=== PATIENT | male | born 1965 | race African-American/Black ===

== ENCOUNTER 2016-07-08 11:43 | Emergency (ER) | payer OTHER ==
[~2016-07-08] VITALS: Ht 175.3 cm; Wt 75.0 kg
[~2016-07-08 11:43] MED LIST: ATOR10TA69 PO; DICL50TA7 PO; DIPH-907 PO; LOSA25TA12 PO; OMEP20CA10 PO; TRAZ-129 PO
[2016-07-08] MEDS ORDERED: SODIUM CHLORIDE 0.9% 1,000 ML IV ONE (11:55)
[2016-07-08 12:27] LABS: BASOPHILS % 1.4 % (0.0-2.0); EOSINOPHILS % 4.8 % (0.0-5.0); HEMOGLOBIN. 12.6 g/dL (14.0-18.0); LYMPHOCYTES % 26.4 % (20.0-50.0); MEAN CORPUSCULAR HEMOGLOBIN 30.2 pg (28.0-32.0); MEAN CORPUSCULAR HGB CONC 33.1 g/dL (31.0-37.0); MEAN CORPUSCULAR VOLUME 91.2 fL (80.0-94.0); MEAN PLATELET VOLUME 7.3 fl (7.4-10.4); MONOCYTES % 10.2 % (2.0-8.0); NEUTROPHILS % 57.2 % (40.0-76.0); PLATELET 251 x1000/uL (130-400); RED BLOOD CELL COUNT 4.17 mill/uL (4.7-6.1); RED CELL DISTRIBUTION WIDTH 15.7 % (11.6-14.6); WHITE BLOOD COUNT 5.8 x1000/uL (4.5-11.0)
[2016-07-08 12:30] LABS: ALANINE AMINOTRANSFERASE 27 IU/L (13-61); ALBUMIN 3.7 g/dL (3.4-5.0); ANION GAP 9; CALCIUM 8.5 mg/dL (8.5-10.1); CARBON DIOXIDE 29 mEq/L (21-32); CHLORIDE 107 mEq/L (98-107); INDEX HEMOLYSI 1 (1-3); INDEX ICTERIC 1 (1-4); INDEX LIPEMIC 1 (1-3); TROPONIN I < 0.02 ng/mL (0.00-0.04); UREA NITROGEN BLOOD 14 mg/dL (7-21); eGFR > 60 mL/min (>60)
[2016-07-08 13:24] LABS: GLUCOSE URINE NEGATIVE (NEGATIVE); KETONES URINE NEGATIVE (NEGATIVE); LEUKOCYTE ESTERASE URINE NEGATIVE (NEGATIVE); NITRITE URINE NEGATIVE (NEGATIVE); OCCULT BLOOD URINE NEGATIVE (NEGATIVE); PROTEIN URINE 1+ (NEGATIVE); SPECIFIC GRAVITY URINE 1.017 (1.005-1.030)
[2016-07-08 13:38] LABS: CLARITY URINE CLEAR (CLEAR); COLOR URINE YELLOW (YELLOW)
[2016-07-08 13:49] LABS: BACTERIA URINE NONE SEEN; RBC URINE NONE SEEN /hpf (0-2); SQUAMOUS EPITHELIAL CELL URINE RARE /lpf (RARE/1+); WBC URINE 0-2 /hpf (0-2)
[2016-07-08 14:38] VITALS: BP 134/71
== END 2016-07-08 14:41 | disposition home or self-care (01) ==
LOC: ER 11:53
DX: R53.1 Weakness (principal); I10 Essential (primary) hypertension; R05 Cough; R06.02 Shortness of breath; I45.6 Pre-excitation syndrome; E11.9 Type 2 diabetes mellitus without complications; Z79.899 Other long term (current) drug therapy; Z79.84 Long term (current) use of oral hypoglycemic drugs; Z88.0 Allergy status to penicillin
CPT/HCPCS: 36415; 70450; 71010; 80053; 81001; 82962; 84484; 85025; 93005; 96360; 99285; J7030; Z7610

== ENCOUNTER 2016-07-30 11:14 | Emergency (ER) | payer OTHER ==
[~2016-07-30] VITALS: Ht 177.8 cm; Wt 77.0 kg
[2016-07-30 12:17] LABS: BASOPHILS % 0.5 % (0.0-2.0); HEMATOCRIT. 40.8 % (42.0-52.0); HEMOGLOBIN. 13.5 g/dL (14.0-18.0); LYMPHOCYTES % 25.4 % (20.0-50.0); MEAN CORPUSCULAR HEMOGLOBIN 29.8 pg (28.0-32.0); MEAN CORPUSCULAR HGB CONC 33.2 g/dL (31.0-37.0); MEAN PLATELET VOLUME 7.2 fl (7.4-10.4); MONOCYTES % 8.7 % (2.0-8.0); NEUTROPHILS % 61.4 % (40.0-76.0); PLATELET 251 x1000/uL (130-400); RED BLOOD CELL COUNT 4.53 mill/uL (4.7-6.1); RED CELL DISTRIBUTION WIDTH 15.3 % (11.6-14.6); WHITE BLOOD COUNT 6.4 x1000/uL (4.5-11.0)
[2016-07-30 12:22] LABS: DIFFERENTIAL COMMENT 1
[2016-07-30 12:23] LABS: CHLORIDE 106 mEq/L (98-107); INDEX HEMOLYSI 1 (1-3); INDEX ICTERIC 1 (1-4); INDEX LIPEMIC 1 (1-3)
[2016-07-30 12:29] LABS: ACETAMINOPHEN < 2 ug/mL (10-30); ANION GAP 11; CARBON DIOXIDE 28 mEq/L (21-32); ETHANOL BLOOD < 10 mg/dL; UREA NITROGEN BLOOD 15 mg/dL (7-21); eGFR > 60 mL/min (>60)
[2016-07-30 14:05] LABS: *AMPHETAMINES SCREEN URINE NEGATIVE (NEGATIVE); *BARBITURATES SCREEN URINE NEGATIVE (NEGATIVE); *BENZODIAZEPINES SCREEN URINE PRESUMTIVE POSITIVE (NEGATIVE); *COCAINE SCREEN URINE NEGATIVE (NEGATIVE); CANNABINOID URINE SCREEN PRESUMTIVE POSITIVE (NEGATIVE); ECSTASY MDMA SCREEN URINE NEGATIVE (NEGATIVE); METHADONE URINE SCREEN NEGATIVE (NEGATIVE); OPIATES URINE SCREEN NEGATIVE (NEGATIVE); PHENCYCLIDINE URINE SCREEN NEGATIVE (NEGATIVE)
[2016-07-30] MEDS ORDERED: METF500T4 PO (17:43)
[2016-07-30] MEDS ORDERED: BANOPHEN (17:47)
[2016-07-30] MEDS ORDERED: CHOL500010 PO (17:47)
[2016-07-30] MEDS ORDERED: OMEP40CA34 PO (17:47)
[2016-07-30] MEDS ORDERED: FOLI-43 PO (17:47)
[2016-07-30] MEDS ORDERED: DICL50TA9 PO (17:47)
[2016-07-30] MEDS ORDERED: TRAZ-132 PO (17:47)
[2016-07-30] MEDS ORDERED: ATOR80TA76 PO (17:47)
[2016-07-30] MEDS ORDERED: HYDROXYCHLOROQUINE (17:47)
[2016-07-30] MEDS ORDERED: DIPHENHYDRAMINE 25MG CAPSULE PO ONE (21:30)
[2016-07-31] MEDS ORDERED: ACETAMINOPHEN 325MG TABLET PO ONE (00:45)
[2016-07-31 09:36] VITALS: BP 141/101
== END 2016-07-31 11:54 | disposition home or self-care (01) ==
LOC: ER 11:23
DX: F41.9 Anxiety disorder, unspecified (principal); F32.9 Major depressive disorder, single episode, unspecified; F19.10 Other psychoactive substance abuse, uncomplicated; M19.90 Unspecified osteoarthritis, unspecified site; E11.9 Type 2 diabetes mellitus without complications; I10 Essential (primary) hypertension; F20.9 Schizophrenia, unspecified; F17.210 Nicotine dependence, cigarettes, uncomplicated; Z88.0 Allergy status to penicillin; Z79.1 Long term (current) use of non-steroidal anti-inflammatories (NSAID); Z79.899 Other long term (current) drug therapy
CPT/HCPCS: 36415; 80048; 80305; 80307; 80329; 82962; 85025; 99284; G0482; Z7610; Q0163

== ENCOUNTER 2016-08-20 10:47 | Emergency (ER) | payer OTHER ==
[~2016-08-20] VITALS: Ht 172.7 cm; Wt 79.0 kg
[~2016-08-20 10:47] MED LIST changes: +ATOR80TA76 PO; +BANOPHEN; +CHOL500010 PO; +DICL50TA9 PO; +FOLI-43 PO; +HYDROXYCHLOROQUINE; +METF500T4 PO; +OMEP40CA34 PO; +TRAZ-132 PO
[2016-08-20] MEDS ORDERED: KETOROLAC 60MG/2ML VIAL IM ONE (11:30)
[2016-08-20 15:00] VITALS: BP 119/75
== END 2016-08-20 15:31 | disposition home or self-care (01) ==
LOC: ER 11:34
DX: M54.5 Low back pain (principal); M54.16 Radiculopathy, lumbar region; M48.06 Spinal stenosis, lumbar region; M51.47 Schmorl's nodes, lumbosacral region; S93.402A Sprain of unspecified ligament of left ankle, initial encounter; M47.897 Other spondylosis, lumbosacral region; S93.602A Unspecified sprain of left foot, initial encounter; W01.0XXA Fall on same level from slipping, tripping and stumbling without subsequent striking against object, initial encounter; Y93.89 Activity, other specified; Y92.89 Other specified places as the place of occurrence of the external cause; I10 Essential (primary) hypertension; E11.9 Type 2 diabetes mellitus without complications; F20.9 Schizophrenia, unspecified; E78.00 Pure hypercholesterolemia, unspecified; F41.9 Anxiety disorder, unspecified; Z88.0 Allergy status to penicillin
CPT/HCPCS: 29515; 72100; 72148; 73610; 73630; 96372; 99284; J1885; Z7610

== ENCOUNTER 2016-10-08 12:50 | Observation (INO) | payer OTHER ==
[~2016-10-08] VITALS: Ht 172.7 cm; Wt 74.8 kg
[~2016-10-08 12:50] MED LIST changes: +ATOR-2 PO; -ATOR80TA76 PO; -BANOPHEN; +BANOPHEN PO; -HYDROXYCHLOROQUINE; +HYDROXYCHLOROQUINE PO
[2016-10-08 14:05] LABS: BASOPHILS % 0.7 % (0.0-2.0); HEMATOCRIT. 41.1 % (42.0-52.0); HEMOGLOBIN. 13.8 g/dL (14.0-18.0); LYMPHOCYTES % 23.1 % (20.0-50.0); MEAN CORPUSCULAR HEMOGLOBIN 29.9 pg (28.0-32.0); MEAN PLATELET VOLUME 7.4 fl (7.4-10.4); MONOCYTES % 10.3 % (2.0-8.0); NEUTROPHILS % 63.9 % (40.0-76.0); PLATELET 235 x1000/uL (130-400); RED BLOOD CELL COUNT 4.62 mill/uL (4.7-6.1); RED CELL DISTRIBUTION WIDTH 14.8 % (11.6-14.6)
[2016-10-08 14:13] LABS: INR 1.1; PARTIAL THROMBOPLASTIN TIME 29.2 sec (24.0-34.0); PROTHROMBIN TIME 11.2 sec
[2016-10-08 14:18] LABS: CARBON DIOXIDE 30 mEq/L (21-32); CHLORIDE 102 mEq/L (98-107); TROPONIN I < 0.02 ng/mL (0.00-0.04)
[2016-10-08] MEDS ORDERED: TRAMADOL 50MG TABLET PO NR (15:15)
[2016-10-08] MEDS ORDERED: IBUPROFEN 600MG TABLET PO NR (15:15)
[2016-10-08 18:58] VITALS: BP 149/113
[2016-10-08 19:30] VITALS: BP 160/99
[2016-10-08 20:00] VITALS: BP 160/99
[2016-10-08] MEDS ORDERED: ACETAMINOPHEN 650MG/20.3ML UDC PO PRN (22:15)
[2016-10-08] MEDS ORDERED: DEXTROSE 50% WATER 50ML SYRINGE IV PRN (22:15)
[2016-10-08] MEDS: TRAZODONE HCL 100MG TABLET PO SCH (22:26)
[2016-10-08] MEDS: ATORVASTATIN CALCIUM 10MG TABLET PO SCH (22:26)
[2016-10-08 23:26] LABS: *AMPHETAMINES SCREEN URINE NEGATIVE (NEGATIVE); *BARBITURATES SCREEN URINE NEGATIVE (NEGATIVE); *BENZODIAZEPINES SCREEN URINE PRESUMTIVE POSITIVE (NEGATIVE); *COCAINE SCREEN URINE NEGATIVE (NEGATIVE); CANNABINOID URINE SCREEN PRESUMTIVE POSITIVE (NEGATIVE); METHADONE URINE SCREEN NEGATIVE (NEGATIVE); OPIATES URINE SCREEN NEGATIVE (NEGATIVE); PHENCYCLIDINE URINE SCREEN NEGATIVE (NEGATIVE)
[2016-10-09] VITALS: BP 118/81
[2016-10-09 04:00] VITALS: BP 125/78
[2016-10-09 06:35] LABS: BASOPHILS % 1.3 % (0.0-2.0); EOSINOPHILS % 5.8 % (0.0-5.0); HEMATOCRIT. 41.2 % (42.0-52.0); HEMOGLOBIN. 13.9 g/dL (14.0-18.0); LYMPHOCYTES % 31.4 % (20.0-50.0); MEAN CORPUSCULAR HEMOGLOBIN 29.7 pg (28.0-32.0); MEAN CORPUSCULAR VOLUME 88.4 fL (80.0-94.0); MEAN PLATELET VOLUME 7.4 fl (7.4-10.4); MONOCYTES % 11.6 % (2.0-8.0); NEUTROPHILS % 49.9 % (40.0-76.0); PLATELET 240 x1000/uL (130-400); RED BLOOD CELL COUNT 4.67 mill/uL (4.7-6.1); RED CELL DISTRIBUTION WIDTH 14.8 % (11.6-14.6)
[2016-10-09 07:04] LABS: CARBON DIOXIDE 27 mEq/L (21-32); CHLORIDE 103 mEq/L (98-107); LDL CHOLESTEROL 43 mg/dL (5-100)
[2016-10-09 07:08] LABS: HDL CHOLESTEROL 51 mg/dL (40-59); T4 FREE 1.21 ng/dL (0.76-1.46); TROPONIN I < 0.02 ng/mL (0.00-0.04)
[2016-10-09] MEDS: INSULIN LISPRO 100 UNITS/ML SUBCUT SCH ×4 (07:15→20:42)
[2016-10-09 08:00] VITALS: BP 154/96
[2016-10-09] MEDS ORDERED: LOSARTAN POTASSIUM 100 MG TABLET PO SCH (09:00)
[2016-10-09] MEDS ORDERED: IOHEXOL-350 100 ML BOTTLE ONE (10:15)
[2016-10-09] MEDS ORDERED: SODIUM CHLORIDE 0.9% 10ML VIAL ONE (10:15)
[2016-10-09] MEDS: LOSARTAN POTASSIUM 25 MG TABLET PO SCH (10:17)
[2016-10-09] MEDS: ASPIRIN 81MG TABLET PO SCH (10:17)
[2016-10-09] MEDS: ENOXAPARIN 40MG/0.4ML SYR SUBCUT SCH (10:17)
[2016-10-09] MEDS: BLOOD SUGAR DIAGNOSTIC STRIP TEST SCH ×3 (11:50→20:41)
[2016-10-09 12:00] VITALS: BP 155/97
[2016-10-09] MEDS: HYDRALAZINE 20MG/ML VIAL IV PRN ×2 (14:24→22:23)
[2016-10-09 20:00] VITALS: BP 164/94
[2016-10-09] MEDS: TRAZODONE HCL 100MG TABLET PO SCH (20:41)
[2016-10-09] MEDS: ATORVASTATIN CALCIUM 10MG TABLET PO SCH (20:41)
[2016-10-09 22:10] VITALS: BP 140/95
[2016-10-10] VITALS: BP_SYST 133; BP_SYST 137; BP_SYST 139; BP_DIAS 88; BP_DIAS 91; BP_DIAS 99
[2016-10-10] MEDS: BLOOD SUGAR DIAGNOSTIC STRIP TEST SCH (06:26)
[2016-10-10] MEDS: INSULIN LISPRO 100 UNITS/ML SUBCUT SCH (06:27)
[2016-10-10] MEDS: ENOXAPARIN 40MG/0.4ML SYR SUBCUT SCH (08:30)
[2016-10-10] MEDS: ASPIRIN 81MG TABLET PO SCH (08:30)
[2016-10-10] MEDS: LOSARTAN POTASSIUM 25 MG TABLET PO SCH (08:30)
== END 2016-10-10 12:30 | disposition left against medical advice (07) ==
LOC: ER 13:19 → INTOOBSV 16:46 → 5WST 16:46 → ENRESERV 17:22
PROVIDERS: ADMIT Internal Medicine; ATTEND Internal Medicine
DX: R55 Syncope and collapse (principal); I45.6 Pre-excitation syndrome; I10 Essential (primary) hypertension; E78.5 Hyperlipidemia, unspecified; E11.9 Type 2 diabetes mellitus without complications; F12.90 Cannabis use, unspecified, uncomplicated; I45.10 Unspecified right bundle-branch block; I45.2 Bifascicular block
CPT/HCPCS: 36415; 70498; 71010; 80048; 80053; 80061; 80305; 82962; 83036; 83690; 83735; 84439; 84443; 84484; 85025; 85379; 85610; 85730; 93005; 93306; 93880; 96372; 96374; 96376; 99285; A4216; G0378; J0360; J1650; Q9967